=== PATIENT | male | born 1995 | race African-American/Black ===

== ENCOUNTER 2019-03-19 16:39 | Emergency (ER) | payer MEDICAID ==
[~2019-03-19] VITALS: Ht 198.1 cm; Wt 135.6 kg
[2019-03-19 17:09] VITALS: Ht 198.1 cm; Wt 135.6 kg
[2019-03-19 19:05] VITALS: BP 147/69
== END 2019-03-19 19:12 | disposition home or self-care (01) ==
LOC: ED 16:39
DX: J18.1 Lobar pneumonia, unspecified organism (principal)
CPT/HCPCS: 87804; J0696